=== PATIENT | female | born 1990 | race Caucasian/White ===

== ENCOUNTER 2017-08-30 02:10 | Inpatient (IN) | payer OTHER ==
[~2017-08-30] VITALS: Ht 157.5 cm; Wt 113.4 kg
[2017-08-30] MEDS ORDERED: CLINDAMYCIN 900 mg/50mL D5W 50 ML IV ONE (02:30)
[2017-08-30] MEDS ORDERED: OXYTOCIN/0.9 % SODIUM CHLORIDE 1,000 ML IV ONE ×2 (02:35→03:05)
[2017-08-30] MEDS ORDERED: OXYCODONE/ACETAMINOPHEN 5-325 TABLET PO PRN (03:15)
[2017-08-30] MEDS ORDERED: ANUSOL 1 EA SUPP.RECT (PREPARATION H) RC PRN (03:15)
[2017-08-30] MEDS ORDERED: RHO(D) IMMUNE GLOBULIN/MALTOSE 1500 UNITS/1.3 ML (WINHRO) IM PRN (03:15)
[2017-08-30] MEDS ORDERED: LANOLIN 7 GM OINT. TP PRN (03:15)
[2017-08-30] MEDS ORDERED: HYDROCORTISONE 0.5%, 28.35 GM TOPICAL CREAM TP PRN (03:15)
[2017-08-30] MEDS ORDERED: GLYCERIN/WITCH HAZEL (TUCKS PADS) TP PRN (03:15)
[2017-08-30] MEDS ORDERED: DERMOPLAST SPRAY TP PRN (03:15)
[2017-08-30] MEDS ORDERED: DIPH-TET-PERTUS Vaccine 0.5 ML VIAL (ADACEL) I.M. PRN (03:15)
[2017-08-30] MEDS ORDERED: METHYLERGONOVINE MALEATE 0.2 MG TABLET PO PRN (03:15)
[2017-08-30] MEDS ORDERED: MEASLES,MUMPS&RUBELLA VACC/PF 12500 UNIT/0.5 ML VIAL SUBQ PRN (03:15)
[2017-08-30] MEDS ORDERED: SENNOSIDES/DOCUSATE SODIUM 1 TAB TABLET(SENOKOT-S) PO PRN (03:15)
[2017-08-30] MEDS ORDERED: LR 1,000 ML IV SCH (03:27)
[2017-08-30] MEDS ORDERED: CLINDAMYCIN 900 mg/50mL D5W 50 ML IV SCH (03:30)
[2017-08-30 04:36] LABS: LYMPHOCYTES # (AUTO) 0.8 K/uL (1.0-5.5)
[2017-08-30 04:40] VITALS: BP_SYST 178
[2017-08-30 04:40] LABS: HEMOGLOBIN 10.7 g/dL (12.0-16.0); MONOCYTES % (AUTO) 5.6 % (1.7-9.3); RED CELL DISTRIBUTION WIDTH 14.1 % (9.0-15.0)
[2017-08-30 04:53] LABS: BASOPHILS % (AUTO) 0.1 % (0.0-2.0); HEMATOCRIT 32.5 % (36-48); LYMPHOCYTES % (AUTO) 3.8 % (20.5-51.5); MEAN CORPUSCULAR HEMOGLOBIN 26 pg (27-31); MEAN CORPUSCULAR HGB CONC 33 % (32-36); MEAN CORPUSCULAR VOLUME 79 fL (79.0-98.0); MONOCYTES # (AUTO) 1.2 K/uL (0.0-1.0); NEUTROPHILS % (AUTO) 90.5 % (40.0-70.0); PLATELET COUNT (AUTO) 266 K/uL (130-430); RED BLOOD CELL COUNT(AUTO) 4.11 MIL/uL (4.2-6.2)
[2017-08-30] MEDS: OXYCODONE/ACETAMINOPHEN 5-325 TABLET PO PRN ×2 (05:35→21:23)
[2017-08-30] MEDS ORDERED: TEMAZEPAM 15 MG CAPSULE PO PRN (21:00)
[2017-08-30] MEDS: DOCUSATE SODIUM 100 MG CAPSULE PO PRN (21:24)
[2017-08-30] MEDS: IBUPROFEN 800 MG TABLET PO PRN (23:41)
[2017-08-31] MEDS: IBUPROFEN 800 MG TABLET PO PRN ×4 (05:53→23:36)
[2017-08-31 06:54] LABS: HEMATOCRIT 31.7 % (36-48); HEMOGLOBIN 10.8 g/dL (12.0-16.0)
[2017-08-31] MEDS: DOCUSATE SODIUM 100 MG CAPSULE PO PRN ×2 (12:06→23:37)
[2017-08-31 12:09] LABS: HEPATITIS B SURFACE AG Negative (Negative)
[2017-08-31 14:06] LABS: RUBELLA AB, IgG 2.03 index (Immune >0.99)
[2017-09-01] MEDS: OXYCODONE/ACETAMINOPHEN 5-325 TABLET PO PRN (01:14)
[2017-09-01] MEDS: IBUPROFEN 800 MG TABLET PO PRN ×2 (05:39→11:58)
[2017-09-01] MEDS: DOCUSATE SODIUM 100 MG CAPSULE PO PRN ×2 (05:40→10:00)
[2017-09-01] MEDS ORDERED: LIDOCAINE PF 1% 30ML(POUR BTL) INJ ONE (12:59)
[2017-09-01] MEDS ORDERED: MINERAL OIL 30 ML UDC PO ONE (12:59)
== END 2017-09-01 13:00 | disposition home or self-care (01) | DRG 775 ==
LOC: SPU 02:10
PROVIDERS: ADMIT Specialist; ATTEND Specialist
PROC: 10E0XZZ Delivery of Products of Conception, External Approach (ICD-10-PCS; principal; 2017-08-30)
PROC: 0KQM0ZZ Repair Perineum Muscle, Open Approach (ICD-10-PCS; 2017-08-30)
DX: O42.92 Full-term premature rupture of membranes, unspecified as to length of time between rupture and onset of labor (principal); O70.1 Second degree perineal laceration during delivery; Z37.0 Single live birth; Z3A.38 38 weeks gestation of pregnancy
CPT/HCPCS: 36415; 85018-TC; 85025; 86592; 86762; 86886; 86900; 86901; 87340; 87536; J2001; J2590; J3490